=== PATIENT | female | born 1965 | race Caucasian/White ===

== ENCOUNTER 2021-03-25 08:00 | Outpatient (REF) | payer OTHER, SELFPAY ==
[2021-03-25 11:33] LABS: Hematocrit 33.9 % (37-47); Hemoglobin 10.9 g/dl (12.0-16.0); Mean Corpuscular HGB Conc 32.2 g/dl (31.0-35.0); Mean Corpuscular Hemoglobin 28.6 pg (27.0-33.0); Mean Platelet Volume 11.2 fL (9.4-12.3); Platelet Count 227 X10*3/uL (160-400); Red Blood Count 3.81 X10*6/uL (4.20-5.50); Red Cell Distribution Width 13.3 % (11.0-16.0); White Blood Count 4.5 X10*3/uL (4.8-10.8)
[2021-03-25 12:11] LABS: Alanine Aminotransferase 19 U/L (0-31); Alkaline Phosphatase 64 U/L (39-117); Anion Gap 9 (12-20); Aspartate Amino Transferase 28 U/L (5-31); Bilirubin Total 0.4 mg/dL (0.0-1.0); Blood Urea Nitrogen 9 mg/dL (9-16); Calcium 8.9 mg/dL (8.4-10.2); Carbon Dioxide 29 mmol/L (22-29); Chloride 107 mmol/L (96-108); Cholesterol 170 mg/dL; Estimated Glomerular Filt Rate > 60; Glucose Fasting 88 mg/dL (60-99); HDL Cholesterol 57 mg/dL; LDL Cholesterol Calculated 102 mg/dl; Sodium 141 mmol/L (135-145); Total Protein 7.1 g/dL (6.5-8.0); Triglycerides 57 mg/dL
[2021-03-31 05:17] LABS: Vitamin D 25-OH, D2 <4 ng/mL; Vitamin D 25-OH, D3 30 ng/mL; Vitamin D 25-OH, Total 30 ng/mL (30-100)
== END 2021-03-25 08:01 | disposition home or self-care (01) ==
LOC: HO.MANLDS 08:00
PROVIDERS: PCP Internal Medicine; Visit Provider Internal Medicine
DX: R09.89 Other specified symptoms and signs involving the circulatory and respiratory systems (principal)
CPT/HCPCS: 36415; 80053; 80061; 82306; 85027

== ENCOUNTER 2022-05-20 08:11 | Outpatient (REF) | payer OTHER, SELFPAY ==
[2022-05-20 11:09] LABS: MANUAL DIFF FLAG NO
[2022-05-20 11:14] LABS: Basophils Absolute Auto 0.1 X10*3/uL (0.0-0.2); Basophils Percent Auto 1.1 % (0-2); Eosinophils Absolute Auto 0.1 X10*3/uL (0.0-0.4); Eosinophils Percent Auto 2.9 % (0-4); Hemoglobin 11.1 g/dl (12.0-16.0); Imm Gran Abs Auto 0.01 X10*3/uL (0.00-0.03); Imm Gran Pct Auto 0.2 % (0.0-0.4); Lymphocytes Absolute Auto 1.6 X10*3/uL (1.2-4.9); Lymphocytes Percent Auto 32.8 % (20-40); Mean Corpuscular HGB Conc 32.6 g/dl (31.0-35.0); Mean Corpuscular Hemoglobin 28.6 pg (27.0-33.0); Mean Corpuscular Volume 87.6 fL (80.0-98.0); Mean Platelet Volume 10.9 fL (9.4-12.3); Monocytes Absolute Auto 0.6 X10*3/uL (0.1-1.2); Neutrophils Absolute Auto 2.4 x10*3/uL (2.0-8.3); Platelet Count 225 X10*3/uL (160-400); Red Blood Count 3.88 X10*6/uL (4.20-5.50); Red Cell Distribution Width 13.6 % (11.0-16.0); White Blood Count 4.8 X10*3/uL (4.8-10.8)
[2022-05-20 11:32] LABS: Alanine Aminotransferase 12 U/L (0-31); Albumin Level 4.1 g/dL (3.5-5.0); Alkaline Phosphatase 64 U/L (39-117); Anion Gap 12 (12-20); Aspartate Amino Transferase 25 U/L (5-31); Bilirubin Total 0.5 mg/dL (0.0-1.0); Blood Urea Nitrogen 9 mg/dL (9-16); Calcium 9.2 mg/dL (8.4-10.2); Carbon Dioxide 30 mmol/L (22-29); Chloride 105 mmol/L (96-108); Cholesterol 168 mg/dL; Estimated Glomerular Filt Rate > 60; Glucose Random 95 mg/dL (60-115); HDL Cholesterol 63 mg/dL; LDL Cholesterol Calculated 95 mg/dl; Potassium 4.5 mmol/L (3.3-5.1); Sodium 142 mmol/L (135-145); Total Protein 7.3 g/dL (6.5-8.0); Triglycerides 53 mg/dL
[2022-05-20 12:06] LABS: Vitamin B12 217 pg/mL (200-900)
== END 2022-05-20 08:12 | disposition home or self-care (01) ==
LOC: HO.MANLDS 08:11
PROVIDERS: Visit Provider Internal Medicine
DX: Z00.00 Encounter for general adult medical examination without abnormal findings (principal)
CPT/HCPCS: 36415; 80053; 80061; 82306; 82607; 84443; 85025

== ENCOUNTER 2023-06-04 09:41 | Outpatient (REF) | payer OTHER, SELFPAY ==
[2023-06-04 13:21] LABS: MANUAL DIFF FLAG NO
[2023-06-04 13:49] LABS: Basophils Absolute Auto 0.1 X10*3/uL (0.0-0.2); Basophils Percent Auto 1.1 % (0-2); Eosinophils Absolute Auto 0.2 X10*3/uL (0.0-0.4); Eosinophils Percent Auto 3.1 % (0-4); Hemoglobin 11.5 g/dl (12.0-16.0); Imm Gran Abs Auto 0.01 X10*3/uL (0.00-0.03); Imm Gran Pct Auto 0.2 % (0.0-0.4); Lymphocytes Absolute Auto 2.2 X10*3/uL (1.2-4.9); Lymphocytes Percent Auto 39.9 % (20-40); Mean Corpuscular HGB Conc 31.9 g/dl (31.0-35.0); Mean Corpuscular Hemoglobin 28.4 pg (27.0-33.0); Mean Corpuscular Volume 88.9 fL (80.0-98.0); Mean Platelet Volume 10.7 fL (9.4-12.3); Monocytes Absolute Auto 0.6 X10*3/uL (0.1-1.2); Monocytes Percent Auto 11.7 % (2-11); Neutrophils Absolute Auto 2.4 x10*3/uL (2.0-8.3); Platelet Count 259 X10*3/uL (160-400); Red Blood Count 4.05 X10*6/uL (4.20-5.50); Red Cell Distribution Width 13.3 % (11.0-16.0); White Blood Count 5.5 X10*3/uL (4.8-10.8)
[2023-06-04 14:05] LABS: Alanine Aminotransferase 22 U/L (0-31); Albumin Level 4.1 g/dL (3.5-5.0); Alkaline Phosphatase 66 U/L (39-117); Anion Gap 13 (12-20); Aspartate Amino Transferase 32 U/L (5-31); Bilirubin Total 0.5 mg/dL (0.0-1.0); Blood Urea Nitrogen 8 mg/dL (9-16); Calcium 9.4 mg/dL (8.4-10.2); Carbon Dioxide 27 mmol/L (22-29); Chloride 103 mmol/L (96-108); Cholesterol 173 mg/dL (<200); Estimated Glomerular Filt Rate > 60; Glucose Random 89 mg/dL (60-115); HDL Cholesterol 67 mg/dL (>40); LDL Cholesterol Calculated 95 mg/dL (<100); Sodium 139 mmol/L (135-145); Total Protein 7.8 g/dL (6.5-8.0); Triglycerides 59 mg/dL (<150)
== END 2023-06-04 09:42 | disposition home or self-care (01) ==
LOC: HO.MANLDS 09:41
PROVIDERS: Visit Provider Internal Medicine
DX: Z00.00 Encounter for general adult medical examination without abnormal findings (principal); Z13.6 Encounter for screening for cardiovascular disorders
CPT/HCPCS: 36415; 80053; 80061; 85025

== ENCOUNTER 2024-06-06 10:09 | Outpatient (REF) | payer OTHER, SELFPAY ==
[2024-06-06 13:11] LABS: MANUAL DIFF FLAG NO
[2024-06-06 13:33] LABS: Basophils Percent Auto 0.8 % (0-2); Eosinophils Absolute Auto 0.1 X10*3/uL (0.0-0.4); Eosinophils Percent Auto 2.7 % (0-4); Hematocrit 34.4 % (37.0-47.0); Hemoglobin 11.4 g/dl (12.0-16.0); Imm Gran Abs Auto 0.02 X10*3/uL (0.00-0.03); Imm Gran Pct Auto 0.4 % (0.0-0.4); Lymphocytes Absolute Auto 1.8 X10*3/uL (1.2-4.9); Lymphocytes Percent Auto 36.5 % (20-40); Mean Corpuscular HGB Conc 33.1 g/dl (31.0-35.0); Mean Corpuscular Hemoglobin 29.9 pg (27.0-33.0); Mean Corpuscular Volume 90.3 fL (80.0-98.0); Mean Platelet Volume 10.7 fL (9.4-12.3); Monocytes Absolute Auto 0.6 X10*3/uL (0.1-1.2); Monocytes Percent Auto 11.8 % (2-11); Neutrophils Absolute Auto 2.3 x10*3/uL (2.0-8.3); Neutrophils Percent Auto 47.8 % (45-73); Platelet Count 230 X10*3/uL (160-400); Red Blood Count 3.81 X10*6/uL (4.20-5.50); White Blood Count 4.8 X10*3/uL (4.8-10.8)
[2024-06-06 13:45] LABS: Alanine Aminotransferase 27 U/L (0-31); Alkaline Phosphatase 61 U/L (39-117); Anion Gap 12 (12-20); Aspartate Amino Transferase 39 U/L (5-31); Bilirubin Total 0.5 mg/dL (0.0-1.0); Blood Urea Nitrogen 9 mg/dL (9-16); Calcium 9.4 mg/dL (8.4-10.2); Carbon Dioxide 30 mmol/L (22-29); Chloride 105 mmol/L (96-108); Cholesterol 172 mg/dL (<200); Estimated Glomerular Filt Rate > 60; Glucose Random 85 mg/dL (60-115); HDL Cholesterol 64 mg/dL (>40); LDL Cholesterol Calculated 100 mg/dL (<100); Sodium 143 mmol/L (135-145); Total Protein 7.3 g/dL (6.5-8.0); Triglycerides 42 mg/dL (<150)
[2024-06-06 14:14] LABS: Thyroid Stimulating Hormone 1.64 uIU/mL (0.32-4.0); Vitamin D 25-OH Total 47.3 ng/mL (>30)
== END 2024-06-06 10:10 | disposition home or self-care (01) ==
LOC: HO.MANLDS 10:09
PROVIDERS: Visit Provider Internal Medicine
DX: Z00.00 Encounter for general adult medical examination without abnormal findings (principal)
CPT/HCPCS: 36415; 80053; 80061; 82306; 84443; 85025

== ENCOUNTER 2025-06-12 10:06 | Outpatient (REF) | payer OTHER, SELFPAY ==
--- OUTSIDE RECORDS SUMMARY | 2025-06-12 12:11 | XMS_ITS | Encounter Summary ---
Author Organization [facility] Address [address] [facility] [address] [place] [address] Phone Care Team Providers Care Air Conditioning Mechanic Name Role Phone Kermit Dash Primary Care Provider [phone] Encounter Details Date Type Department Care Team (Late st Contact Info) Description 12/25/2022 Procedure Pass [facility], Ct Scan - [address] [address] Social History Tobacco Use Types Packs/Day Years Used Date Smoking Tobacco: Never Smokeless Tobacco: Never Alcohol Use Standard Drinks/Week Comments Never 0 (1 standard drink = 0.6 oz pur e alcohol) Education Answer Date Recorded Are you interested in more education? Not on william e 12/11/2022 Are you concerned about learning? Not on file 12/11/2022 No 12/11/2022 No 12/11/2022 Comments No Sex and Gender Information Value Date Recorded Sex Assigned at Not on file Legal Sex Female 9:43 PM EDT Gender Identity Not on file Sexual Orientation Not on file documented as of this encounter Plan of Treatment Upcoming Encounters Date Type Department Care Team (Late st Contact Info) Description 03/13/2025 Procedure Pass [facility], Mammography- [facility] [address] [place] [address] 12/28/2025 12:45 PM EDT Appointment [facility] [address] 3rd [place] [address] Vijay Mitchell MD [address] [facility], [address] [place] [address] 12/28/2025 1:30 PM EDT Appointment [facility] [place] [address] 3rd [place] [address] Vijay Mitchell MD [address] [facility], [address] [place] [address] 02/08/2026 10:00 AM EDT Office Visit [facility] [address] Floor, [address] [place] [address] Vijay Mitchell MD [address] [place] [address], [address] [address] 03/12/2026 7:30 AM EDT Appointment [address] [address] Souleymane Quick DO 170 [facility], 2nd [place] [address] documented as of this encounter Visit Diagnoses Not on filedocumented in this encounter Care Teams Air Conditioning Mechanic Relationship Specialty Start Date End Date Indioclyde Kermit DO Tatianna PCP - General 06/01/17 documented as of this encounter Additional Source Comments The information contained in this document represents components of the legal health record. It is not the complete legal health record.[facility]
--- OUTSIDE RECORDS SUMMARY | 2025-06-12 12:11 | XMS_ITS | Encounter Summary ---
Author Organization [facility] Address [address] [facility] [address] [place] [address] Phone Care Team Providers Care Hvac Installer Name Role Phone Indioclyde Kermit Tatianna ROJAS Primary Care Provider [phone] Encounter Details Date Type Department Care Team (Late st Contact Info) Description 02/26/2021 Procedure Pass [address] [address] Social History Tobacco Use Types Packs/Day Years Used Date Smoking Tobacco: Never Smokeless Tobacco: Never Alcohol Use Standard Drinks/Week Comments Never 0 (1 standard drink = 0.6 oz pur e alcohol) Comments No Sex and Gender Information Value Date Recorded Sex Assigned at Not on file Legal Sex Female 9:43 PM EDT Gender Identity Not on file Sexual Orientation Not on file documented as of this encounter Plan of Treatment Upcoming Encounters Date Type Department Care Team (Late st Contact Info) Description 03/13/2025 Procedure Pass [address] [address] 12/28/2025 12:45 PM EDT Appointment [facility] [address] [place] [address] Vijay Mitchell MD 22 [facility] 301 [place] [address] 12/28/2025 1:30 PM EDT Appointment [facility] [address] [place] [address] Vijay Mitchell MD [address] [facility], [address] [place] [address] 02/08/2026 10:00 AM EDT Office Visit [facility] [address] [place] [address] 3rd Floor, [address] [place] [address] Vijay Mitchell MD [address] [facility], [address] [place] [address] 03/12/2026 7:30 AM EDT Appointment [address] [address] Souleymane Quick DO [address] [place] [address], 2nd [place] [address] documented as of this encounter Visit Diagnoses Not on filedocumented in this encounter Care Teams Hvac Installer Relationship Specialty Start Date End Date Kermit Dash DO PCP - General 06/01/17 documented as of this encounter Additional Source Comments The information contained in this document represents components of the legal health record. It is not the complete legal health record.[facility]
--- OUTSIDE RECORDS SUMMARY | 2025-06-12 12:12 | XMS_ITS | Encounter Summary ---
Author Organization [facility] Address [address] [facility] [address] [place] [address] Phone Care Team Providers Care Special Effects Artist Name Role Phone Indioclyde Kermit Tatianna ROJAS Primary Care Provider [phone] Encounter Details Date Type Department Care Team (Late st Contact Info) Description 03/08/[address] [address] Social History Tobacco Use Types Packs/Day Years Used Date Smoking Tobacco: Never Smokeless Tobacco: Never Alcohol Use Standard Drinks/Week Comments Never 0 (1 standard drink = 0.6 oz pur e alcohol) Education Answer Date Recorded Are you interested in more education? Not on william e 12/11/2022 Are you concerned about learning? Not on file 12/11/2022 No 12/11/2022 No 12/11/2022 Digital Access Answer Date Recorded No 01/11/2023 No 01/11/2023 Reliable internet access at home? Not on file 01/11/2023 Device with a working camera? Not on file Comments No Sex and Gender Information Value Date Recorded Sex Assigned at Not on file Legal Sex Female 9:43 PM EDT Gender Identity Not on file Sexual Orientation Not on file documented as of this encounter Plan of Treatment Upcoming Encounters Date Type Department Care Team (Late st Contact Info) Description 03/13/[address] [address] 12/28/2025 12:45 PM EDT Appointment [facility] [place] [address]rd [place] [address] Vijay Mitchell MD [address] [place] [address], [address] [address] 12/28/2025 1:30 PM EDT Appointment [facility] [address] [place] [address] Vijay Mitchell MD [address] [place] [address], [address] [address] 02/08/2026 10:00 AM EDT Office Visit [facility] [address], [address] [address] Vijay Mitchell MD [address] [place] [address] 03/12/2026 7:30 AM EDT Appointment [address] [address] Souleymane Quick DO [address] [place] [address], [address] [place] [address] documented as of this encounter Visit Diagnoses Not on filedocumented in this encounter Care Teams Special Effects Artist Relationship Specialty Start Date End Date Kermit Dash DO PCP - General 06/01/17 documented as of this encounter Additional Source Comments The information contained in this document represents components of the legal health record. It is not the complete legal health record.[facility]
--- OUTSIDE RECORDS SUMMARY | 2025-06-12 12:12 | XMS_ITS | Encounter Summary ---
Author Organization [facility] Address [address] [facility] [facility] [address] [place] [address] Phone Care Team Providers Care Hospital Housekeeper Name Role Phone Kermit Dash DO Primary Care Provider [phone] Encounter Details Date Type Department Care Team (Late st Contact Info) Description 03/04/2022 Transcribe Orders Virtual Department 30 [place] [address] Kermit Dash DO [address] [facility] [place] [address] [place] [address] [email or web address] Encounter for screening mammogram for malignant neoplasm of breast (Primary Dx) Social History Tobacco Use Types Packs/Day Years [...] st Contact Info) Description 03/13/2025 Procedure Pass [facility], [facility]- [facility] 30 [place] [address] 12/28/2025 12:45 PM EDT Appointment [facility] [address] 3rd [place] [address] Vijay Mitchell MD [address] [facility], [address] [place], [place] [id number] 12/28/2025 1:30 PM EDT Appointment [facility] [place] [address]rd [place] [address] Vijay Mitchell MD [address] [place] [address], [address] [place] [address] 02/08/2026 10:00 AM EDT Office Visit [facility] [address] Floor, [address] [place] [address] Vijay Mitchell MD [address] [place] [address], [address] [place], [place] [id number] 03/12/2026 7:30 AM EDT Appointment [facility], [facility]- [address] [address] Souleymane Quick, DO [address] [facility] [place] [place], 2nd [place] [address] documented as of this encounter Results * BI MAMMOGRAM SCREENING WITH TOMOSYNTHESIS WITH CAD (BILATERAL) (03/05/2023 7:37 AM EDT) Anatomical Region Laterality Modality Breast Left, Breast Right, Breast Bilateral Bila teral Mammography 03/10/2023 5:23 PM EDT Impressions 03/11/2023 8:59 AM EDT No mammographic signs of malignancy. Annual screening is recommended. BI-RADS CATEGORY: 1 - Negative. DENSITY: The breast tissue is heterogeneously dense, which could obscure a lesion on mammography. Narrative 03/11/2023 8:59 AM EDT Bilateral mammography is performed in conjunction with computed aided detection. 3-D tomography along with 2-D C view imaging was also performed. Comparison made to previous dated as far back as 04/05/2009 and as recent as 03/03/2022. No suspicious masses, areas of architectural distortion or suspicious microcalcifications. Procedure Note Seven Gabriel MD - 03/11/2023 Bilateral mammography is performed in conjunction with computed aideddetection. 3-D tomography along with 2-D C view imaging was alsoperformed. Comparison made to previous dated as far back as 04/05/2009 andas recent as 03/03/2022. No suspicious masses, areas of architectural distortion or suspiciousmicrocalcifications. IMPRESSION: No mammographic signs of malignancy. Annual screening is recommended. BI-RADS CATEGORY: 1 - Negative. DENSITY: The breast tissue is heterogeneously dense, which could obscurea lesion on mammography. us Provider Not In System PhD IMG MG EXAMS Final Result documented in this encounter Visit Diagnoses Diagnosis Encounter for screening mammogram for malignant neoplasm of breast- Primary Encounter for screening mammogram for malignant neoplasm of breast documented in this encounter Care Teams Hospital Housekeeper Relationship Specialty Start Date End Date Kermit Dash DO [email or web address] PCP - General 06/01/17 documented as of this encounter Additional Source Comments The information contained in this document represents components of the legal health record. It is not the complete legal health record.[facility]
--- OUTSIDE RECORDS SUMMARY | 2025-06-12 12:12 | XMS_ITS | Encounter Summary ---
Author Organization [facility] Address [address] [facility] [address] [place] [address] Phone Care Team Providers Care Emergency Response Coordinator Name Role Phone Kermit Dash DO Primary Care Provider [phone] Encounter Details Date Type Department Care Team (Late Contact Info) Description 03/08/2024 Transcribe Orders Virtual Department 30 [place] [address] Kermit Dash DO 179 [facility] [place] [address] [email or web address] Breast screening (Primary Dx) Social History Tobacco Use Types [...] Encounters Date Type Department Care Team (Late Contact Info) Description 03/13/2025 Procedure Pass [facility] [address] 12/28/2025 12:45 PM EDT Appointment [facility] [address] [place] [address] Vijay Mitchell MD [address] [place] [address] 12/28/2025 1:30 PM EDT Appointment [facility] [address] [place] [address] Vijay Mitchell MD [address] [place] [address], [address] [address] 02/08/2026 10:00 AM EDT Office Visit [facility] [address] [place] [address], [address] [address] Vijay Mitchell MD [address] [place] [address] 03/12/2026 7:30 AM EDT Appointment [address] [address] Souleymane Quick, DO 170 [facility], 2nd [place] [address] documented as of this encounter Results * BI MAMMOGRAM SCREENING WITH TOMOSYNTHESIS WITH CAD (BILATERAL) (03/09/2025 7:53 AM EDT) Anatomical Region Laterality Modality Breast Left, Breast Right, Breast Bilateral Bila teral Mammography 03/09/2025 9:20 AM EDT Impressions 03/09/2025 9:23 AM EDT No mammographic evidence of malignancy in either breast. Annual screening mammography is recommended. BI-RADS 1 NEGATIVE The patient will be notified of the results and recommendations. Narrative 03/09/2025 9:23 AM EDT BI MAMMOGRAM SCREENING WITH TOMOSYNTHESIS WITH CAD (BILATERAL) Additional patient information: Screening. COMPARISON: Comparison is made with relevant prior imaging. Breast composition: The breasts are heterogeneously dense, which may obscure small masses. FINDINGS: No abnormal masses, suspicious calcifications, or other significant findings are identified mammographically in either breast. There has been no significant interval change. us Provider Not In System PhD IMG MG EXAMS Final Result documented in this encounter Visit Diagnoses Diagnosis Breast screening- Primary Breast screening, unspecified Breast screening Breast screening, unspecified documented in this encounter Care Teams Emergency Response Coordinator Relationship Specialty Start Date End Date Kermit Dash DO [email or web address] PCP - General 06/01/17 documented as of this encounter Additional Source Comments The information contained in this document represents components of the legal health record. It is not the complete legal health record.[facility]
--- OUTSIDE RECORDS SUMMARY | 2025-06-12 12:12 | XMS_ITS | Encounter Summary ---
Author Organization [facility] Address [address] [facility] [address] [place] [address] Phone Care Team Providers Care Bitumastic Applier Name Role Phone Kermit Dash DO Primary Care Provider [phone] Encounter Details Date Type Department Care Team (Late Contact Info) Description 02/26/2021 Transcribe Orders Virtual Department 30 [place] [address] Kermit Dash DO 179 [facility] [address] [place] [address] Breast screening (Primary Dx) Social History Tobacco Use Types Packs/Day Years Used Date Smoking Tobacco: Never Assessed Comments No Sex and Gender Information Value Date Recorded Sex Assigned at Not on file Legal Sex Female 9:43 PM EDT Gender Identity Not on file Sexual Orientation Not on file documented as of this encounter Plan of Treatment Upcoming Encounters Date Type Department Care Team (Late Contact Info) Description 03/13/2025 Procedure Pass [facility], Mammography- [facility] 30 [place] [address] 12/28/2025 12:45 PM EDT Appointment [facility] [address] 3rd [place] [address] Vijay Mitchell MD 22 [facility], [address] [place] [address] 12/28/2025 1:30 PM EDT Appointment [facility] [address] [place] [address] Vijay Mitchell MD 22 [facility], [address] [place] [address] [email or web address] 02/08/2026 10:00 AM EDT Office Visit [facility] [address], [address] [place] [address] Vijay Mitchell MD [address] [facility], [address] [place] [address] 03/12/2026 7:30 AM EDT Appointment [facility], [address] [address] Souleymane Quick, [address], 2nd [place] [address] [email or web address] documented as of this encounter Results * BI MAMMOGRAM SCREENING WITH TOMOSYNTHESIS WITH CAD (BILATERAL) (03/03/2022 7:35 AM EDT) Anatomical Region Laterality Modality Breast Left, Breast Right, Breast Bilateral Bila teral Mammography 03/03/2022 8:01 AM EDT Impressions 03/03/2022 8:12 AM EDT No mammographic evidence of malignancy. Recommend routine annual surveillance. BI-RADS CATEGORY: 1 - Negative. DENSITY: The breast tissue is heterogeneously dense, which could obscure a lesion on mammography. Narrative 03/03/2022 8:12 AM EDT 56-year-old female. Comparison made to previous on 02/25/2021 and as far back as 04/05/2009. Interpretation made in conjunction with computer-aided detection and tomosynthesis. The breasts are heterogeneously dense, which may obscure small masses. There are no suspicious masses, areas of architectural distortion, or suspicious clusters of microcalcifications. Procedure Note Morro Harrington MD - 03/03/2022 56-year-old female. Comparison made to previous on 02/25/2021 and as farback as 04/05/2009. Interpretation made in conjunction with computer-aideddetection and tomosynthesis. The breasts are heterogeneously dense, which may obscure small masses. There are no suspicious masses, areas of architectural distortion, orsuspicious clusters of microcalcifications. IMPRESSION: No mammographic evidence of malignancy. Recommend routine annualsurveillance. BI-RADS CATEGORY: 1 - Negative. DENSITY: The breast tissue is heterogeneously dense, which could obscurea lesion on mammography. us Kermit Dash DO IMG MG EXAMS Final Result documented in this encounter Visit Diagnoses Diagnosis Breast screening- Primary Breast screening, unspecified Breast screening Breast screening, unspecified documented in this encounter Care Teams Bitumastic Applier Relationship Specialty Start Date End Date Kermit Dash DO PCP - General 06/01/17 documented as of this encounter Additional Source Comments The information contained in this document represents components of the legal health record. It is not the complete legal health record.[facility]
--- OUTSIDE RECORDS SUMMARY | 2025-06-12 12:12 | XMS_ITS | Encounter Summary ---
Author Organization [facility] Address [address] [facility] [address] [place] [address] Phone Care Team Providers Care Managed Care Provider Name Role Phone Indioclyde Kermit Tatianna ROJAS Primary Care Provider [phone] Encounter Details Date Type Department Care Team (Late st Contact Info) Description 03/20/[address] [address] Social History Tobacco Use Types Packs/Day Years [...] (Late st Contact Info) Description 03/13/[address] [address] 12/28/2025 12:45 PM EDT Appointment [facility] [place] [address] 3rd [place] [address] Vijay Mitchell MD [address] [place] [address], [address] [address] 12/28/2025 1:30 PM EDT Appointment [facility] [address] [place] [address] Vijay Mitchell MD [address] [place] [address], [address] [address] 02/08/2026 10:00 AM EDT Office Visit [facility] [address], [address] [address] Vijay Mitchell MD [address] [place] [address] 03/12/2026 7:30 AM EDT Appointment [address] [address] Souleymane Quick DO [address] [place] [address], 2[address] [place] [address] documented as of this encounter Visit Diagnoses Not on filedocumented in this encounter Care Teams Managed Care Provider Relationship Specialty Start Date End Date Kermit Dash DO PCP - General 06/01/17 documented as of this encounter Additional Source Comments The information contained in this document represents components of the legal health record. It is not the complete legal health record.[facility]
--- OUTSIDE RECORDS SUMMARY | 2025-06-12 12:14 | XMS_ITS | Encounter Summary ---
Author Organization [facility] Address [address] [facility] [address] [place] [address] Phone Care Team Providers Care Hole Filler Name Role Phone IndioKermit tang Primary Care Provider [phone] Encounter Details Date Type Department Care Team (Late st Contact Info) Description 01/26/[address] [address] Social History Tobacco Use Types Packs/Day Years [...] (Late st Contact Info) Description 03/13/[address] [address] 12/28/2025 12:45 PM EDT Appointment [facility] [place] [place] [address] Vijay Mitchell MD [address] [place] [address] 12/28/2025 1:30 PM EDT Appointment [facility] [address] [place] [address] Vijay Mitchell MD [address] [place] [address] 02/08/2026 10:00 AM EDT Office Visit [facility] [address] [facility] 3rd Floor, [address] [place] [address] Vijay Mitchell MD 22 [facility], [address] [place] [address] 03/12/2026 7:30 AM EDT Appointment [facility] 30 [place] [address] Souleymane Quick DO 170 [facility], 2nd [place] [address] documented as of this encounter Visit Diagnoses Not on filedocumented in this encounter Care Teams Hole Filler Relationship Specialty Start Date End Date Kermit Dash DO PCP - General 06/01/17 documented as of this encounter Additional Source Comments The information contained in this document represents components of the legal health record. It is not the complete legal health record.[facility]
--- OUTSIDE RECORDS SUMMARY | 2025-06-12 12:14 | XMS_ITS | Encounter Summary ---
Author Organization [facility] Address [address] [place] [address] Phone Care Team Providers Care Foundry Process Engineer Name Role Phone Kermit Dash DO Primary Care Provider [phone] Encounter Details Date Type Department Care Team (Late st Contact Info) Description 06/05/2017 Ancillary Orders [facility] X-Ray [address] [address] Kermit Dash DO [address] [facility] [place] [address] [place] [address] Visit for screening mammogram Social History Tobacco Use Types Packs/Day Years Used Date Smoking Tobacco: Never Assessed Comments Unknown Sex and Gender Information Value Date Recorded Sex Assigned at Not on file Legal Sex Female 9:43 PM EDT Gender Identity Not on file Sexual Orientation Not on file documented as of this encounter Plan of Treatment Upcoming Encounters Date Type Department Care Team (Late st Contact Info) Description 03/13/2025 Procedure Pass [facility] Mammography- [address] [address] 12/28/2025 12:45 PM EDT Appointment [facility] [address] 3rd [place] [address] Vijay Mitchell MD [address] [facility], [address] [place] [address] 12/28/2025 1:30 PM EDT Appointment [facility] [place] [address] 3rd [place] [address] Vijay Mitchell MD [address] [place] [address], [address] [place] [address] 02/08/2026 10:00 AM EDT Office Visit [facility] [address] Floor, [address] [place] [address] Vijay Mitchell MD [address] [facility], [address] [place] [address] 03/12/2026 7:30 AM EDT Appointment [facility], [address] [address] Souleymane Quick, [address], 2nd [place] [address] [email or web address] documented as of this encounter Results * BI MAMMOGRAM SCREENING WITH TOMOSYNTHESIS WITH CAD (BILATERAL) (02/18/2018 7:41 AM EDT) Anatomical Region Laterality Modality Breast Left, Breast Right, Breast Bilateral Bila teral Mammography 02/18/2018 8:49 AM EDT Impressions 02/18/2018 8:53 AM EDT BILATERAL BREASTS: Negative, no evidence of malignancy. Normal interval follow- up is recommended in 12 months. BI-RADS CATEGORY: 1 - Negative. DENSITY: The breast tissue is heterogeneously dense, an appearance which lowers the sensitivity of mammography. POS - [id number] Narrative 02/18/2018 8:53 AM EDT STUDY: Bilateral screening mammography with tomosynthesis and CAD TECHNIQUE: Bilateral full-field digital screening mammography is obtained and read in conjunction with computer-aided detection. Tomosynthesis as well as 2-D C view imaging were obtained. COMPARISON: Comparison made to multiple prior, most recent February 17, 2017, and most remote April 08, 2011. BREAST COMPOSITION: The breasts are heterogeneously dense, which may obscure small masses. BILATERAL BREASTS: No significant masses, calcifications or other abnormalities are seen. Procedure Note Jannet Barrientos MD - 02/18/2018 STUDY: Bilateral screening mammography with tomosynthesis and CAD TECHNIQUE: Bilateral full-field digital screening mammography is obtainedand read in conjunction with computer-aided detection. Tomosynthesis aswell as 2-D C view imaging were obtained. COMPARISON: Comparison made to multiple prior, most recent February 17, 2017,and most remote April 08, 2011. BREAST COMPOSITION: The breasts are heterogeneously dense, which mayobscure small masses. BILATERAL BREASTS: No significant masses, calcifications or otherabnormalities are seen. IMPRESSION: BILATERAL BREASTS: Negative, no evidence of malignancy. Normal intervalfollow-up is recommended in 12 months. BI-RADS CATEGORY: 1 - Negative. DENSITY: The breast tissue is heterogeneously dense, an appearance whichlowers the sensitivity of mammography. POS - [id number] Kermit Dash DO IMG MG EXAMS Final Result documented in this encounter Visit Diagnoses Diagnosis Visit for screening mammogram Visit for screening mammogram documented in this encounter Care Teams Foundry Process Engineer Relationship Specialty Start Date End Date Kermit Dash DO PCP - General 06/01/17 documented as of this encounter Additional Source Comments The information contained in this document represents components of the legal health record. It is not the complete legal health record.[facility]
--- OUTSIDE RECORDS SUMMARY | 2025-06-12 12:14 | XMS_ITS | Encounter Summary ---
Author Organization [facility] Address [address] [facility] [address] [place] [address] Phone Care Team Providers Care Sexologist Name Role Phone Kermit Dash DO Primary Care Provider [phone] Encounter Details Date Type Department Care Team (Late Contact Info) Description 02/21/2019 Ancillary Orders Virtual Department [address] [place] [address] Kermit Dash DO [address] [facility] [place] [address] [place] [address] [email or web address] Breast screening Social History Tobacco Use Types Packs/Day Years [...] (Late Contact Info) Description 03/13/2025 Procedure Pass [facility], Mammography- [facility] [address] [place] [address] 12/28/2025 12:45 PM EDT Appointment [facility] [address] [place] [address] Vijay Mitchell MD [address] [facility], [address] [place] [address] 12/28/2025 1:30 PM EDT Appointment [facility] [address]rd [facility] [place] [address] Vijay Mitchell MD [address] [facility], [address] [place] [address] 02/08/2026 10:00 AM EDT Office Visit [facility] [address], [address] [place] [address] Vijay Mitchell MD [address] [facility], [address] [place] [address] 03/12/2026 7:30 AM EDT Appointment [facility], [address] [address] Souleymane Quick, [address] [facility], 2nd [place] [address] [email or web address] documented as of this encounter Results * BI MAMMOGRAM SCREENING WITH TOMOSYNTHESIS WITH CAD (BILATERAL) (02/22/2020 7:29 AM EDT) Anatomical Region Laterality Modality Breast Left, Breast Right, Breast Bilateral Bila teral Mammography 02/22/2020 10:0 5 AM EDT Impressions 02/22/2020 10:07 AM EDT No mammographic signs of malignancy. Annual screening is recommended. BI-RADS CATEGORY: 1 - Negative. DENSITY: The breast tissue is heterogeneously dense, an appearance which lowers the sensitivity of mammography. POS - [id number] Narrative 02/22/2020 10:07 AM EDT Bilateral mammography is performed in conjunction with computed aided detection. 3-D tomography along with 2-D C view imaging was also performed. Comparison made to previous dated as far back as 04/12/2013 and as recent as 02/20/2019. No suspicious masses, areas of architectural distortion or suspicious microcalcifications. Procedure Note Seven Kaplan MD - 02/22/2020 Bilateral mammography is performed in conjunction with computed aideddetection. 3-D tomography along with 2-D C view imaging was alsoperformed. Comparison made to previous dated as far back as 04/12/2013 andas recent as 02/20/2019. No suspicious masses, areas of architectural distortion or suspiciousmicrocalcifications. IMPRESSION: No mammographic signs of malignancy. Annual screening is recommended. BI-RADS CATEGORY: 1 - Negative. DENSITY: The breast tissue is heterogeneously dense, an appearance whichlowers the sensitivity of mammography. POS - [id number] us Kermit Dash DO IMG MG EXAMS Final Result documented in this encounter Visit Diagnoses Diagnosis Breast screening Breast screening, unspecified Breast screening Breast screening, unspecified documented in this encounter Care Teams Sexologist Relationship Specialty Start Date End Date Kermit Dash DO PCP - General 06/01/17 documented as of this encounter Additional Source Comments The information contained in this document represents components of the legal health record. It is not the complete legal health record.[facility]
--- OUTSIDE RECORDS SUMMARY | 2025-06-12 12:14 | XMS_ITS | Encounter Summary ---
Author Organization [facility] Address [address] [place] [address] Phone Care Team Providers Care Military Pay Clerk Name Role Phone Indioclyde Kermit Tatianna ROJAS Primary Care Provider [phone] Encounter Details Date Type Department Care Team (Late st Contact Info) Description 03/05/2022 Procedure Pass [address] [address] Social History Tobacco Use Types Packs/Day Years [...] st Contact Info) Description 03/13/2025 Procedure Pass [address] [address] 12/28/2025 12:45 PM EDT Appointment [facility] [address] [place] [address] [place] [address] Vijay Mitchell MD [address] [facility] [address] [place] [address] 12/28/2025 1:30 PM EDT Appointment [facility] [address] [place] [address] Vijay Mitchell MD [address] [facility], [address] [place] [address] 02/08/2026 10:00 AM EDT Office Visit [facility] [address] [place] [address] 3rd Floor, [address] [place] [address] Vijay Mitchell MD [address] [facility], [address] [place] [address] 03/12/2026 7:30 AM EDT Appointment [address] [address] Souleymane Quick DO [address] [place] [address], 2nd [place] [address] documented as of this encounter Visit Diagnoses Not on filedocumented in this encounter Care Teams Military Pay Clerk Relationship Specialty Start Date End Date Kermit Dash DO PCP - General 06/01/17 documented as of this encounter Additional Source Comments The information contained in this document represents components of the legal health record. It is not the complete legal health record.[facility]
--- OUTSIDE RECORDS SUMMARY | 2025-06-12 12:14 | XMS_ITS | Encounter Summary ---
Author Organization [facility] Address [address] [facility] [address] [place] [address] Phone Care Team Providers Care Automobile Body Customizer Name Role Phone Kermit Dash DO Primary Care Provider [phone] Encounter Details Date Type Department Care Team (Late Contact Info) Description 03/19/2021 Transcribe Orders Virtual Department 30 [place] [address] Kermit Dash DO [address] [facility] [place] [address] [place] [address] Other specified symptoms and signs involving the circulatory and respiratory systems (Primary Dx) Social History Tobacco Use Types [...] (Late Contact Info) Description 03/13/2025 Procedure Pass [facility] 30 [place] [address] 12/28/2025 12:45 PM EDT Appointment [facility] [address] 3rd [place] [address] Vijay Mitchell MD [address] [facility], [address] [place] [address] 12/28/2025 1:30 PM EDT Appointment [facility] [place] [address] 3rd [place] [address] Vijay Mitchell MD [address] [facility], [address] [place] [address] 02/08/2026 10:00 AM EDT Office Visit [facility] [address], [address] [place] [address] Vijay Mitchell MD [address] [facility], [address] [place] [address] 03/12/2026 7:30 AM EDT Appointment [facility] 30 [place] [address] Souleymane Quick, [address] [place] [address], 2nd [place] [address] documented as of this encounter Results * US Carotid Duplex Complete (Bilateral) (03/25/2021 2:01 PM EDT) Anatomical Region Laterality Modality Heart, Thoracic Vasculature, Neck Ultrasound 03/25/2021 2:08 PM EDT Impressions 03/25/2021 2:09 PM EDT 1. Moderate bilateral internal carotid artery stenosis (50-69% stenosis range). 2. Bilateral antegrade vertebral artery flow. Narrative 03/25/2021 2:09 PM EDT COMPARISON: None. CAROTID ULTRASOUND FINDINGS: RIGHT: Peak external carotid artery: 136 cm/sec Peak vertebral: 101 cm/sec and antegrade Carotid artery morphology: No plaque identified. Peak common carotid artery: 145/41 cm/sec Peak internal carotid artery: 149/57 cm/sec Normal peak systolic ratio. LEFT: Peak external carotid artery: 85 cm/sec Peak vertebral: 77 cm/sec and antegrade Carotid artery morphology: No plaque identified. Peak common carotid artery: 141/38 cm/sec Peak internal carotid artery: 150/58 cm/sec Normal peak systolic ratio. Any stenosis measurement is relative to the distal ICA diameters. Procedure Note Morro Harrington MD - 03/25/2021 COMPARISON: None. CAROTID ULTRASOUND FINDINGS: RIGHT: Peak external carotid artery: 136 cm/sec Peak vertebral: 101 cm/sec and antegrade Carotid artery morphology: No plaque identified. Peak common carotid artery: 145/41 cm/sec Peak internal carotid artery: 149/57 cm/sec Normal peak systolic ratio. LEFT: Peak external carotid artery: 85 cm/sec Peak vertebral: 77 cm/sec and antegrade Carotid artery morphology: No plaque identified. Peak common carotid artery: 141/38 cm/sec Peak internal carotid artery: 150/58 cm/sec Normal peak systolic ratio. Any stenosis measurement is relative to the distal ICA diameters. IMPRESSION: 1. Moderate bilateral internal carotid artery stenosis (50-69% stenosisrange). 2. Bilateral antegrade vertebral artery flow. us Kermit Dash DO CV US NEUROVASCULAR Final Result documented in this encounter Visit Diagnoses Diagnosis Other specified symptoms and signs involving the circulatory and respiratory systems- Primary Other specified symptoms and signs involving the circulatory and respiratory systems documented in this encounter Care Teams Automobile Body Customizer Relationship Specialty Start Date End Date Kermit Dash DO [email or web address] PCP - General 06/01/17 documented as of this encounter Additional Source Comments The information contained in this document represents components of the legal health record. It is not the complete legal health record.[facility]
--- OUTSIDE RECORDS SUMMARY | 2025-06-12 12:14 | XMS_ITS | Clinical Summary ---
Author Organization [facility] Address [address] [facility] [address] [place] [address] Phone Care Team Providers Care Email Designer Name Role Phone IndioKermit tang Primary Care Provider [phone] Allergies Active Allergy Reactions Criticality Noted Date Comments Amoxicillin-Pot Clavulanate Rash Low 04/14/20 21 Medications cholecalciferol (VITAMIN D3) 25 MCG (1,000 unit) tablet Take 1,000 Units by mouth daily. Active PREVIDENT 5000 BOOSTER PLUS 1.1 % Pste Place 1 Application onto teeth as needed. 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 No indication for intervention at this time. Monitor with clinical correlation. Assessment & Plan (11/10/2021 4:48 PM EDT): We will evaluate renal artery as well as this commonly affects the carotid and renal arteries. Patient currently has 50 to 79% bilateral ICA stenosis secondary to fibromuscular dysplasia. We will repeat ultrasound studies every 6 months to a year. We will also assess for clinical correlation in terms of deciding on intervention for this. Bilateral carotid artery stenosis 04/14/2021 Assessment & Plan (12/22/2021 4:53 PM EDT): Asymptomatic. 50 to 79% stenosis. Monitor and follow-up with clinical correlation. Encounters Date Type Department Care Team Description 03/13/2025 Transcribe Orders Virtual Department [address] [place] [address] Kermit Dash, DO Breast screening (Primary Dx) from Last 3 Months Family History Medical History Relation Comments Cancer Father Heart valve surgery Father Breast cancer Niece Diabetes Paternal Grandfather Relation Status Comments Father Niece Paternal Grandfather Social History Tobacco Use Types Packs/Day Years Used Date Smoking Tobacco: Never Smokeless Tobacco: Never Tobacco Cessation:Counseling Given: Not Answered Alcohol Use Standard Drinks/Week Comments Never 0 [...] on file Sexual Orientation Not on file Last Filed Vital Signs Vital Sign Reading Time Taken Comments Blood Pressure 132/70 02/09/2025 12:39 PM EDT Pulse 70 02/09/2025 12:39 PM EDT Temperature - - Respiratory Rate - - Oxygen Saturation 98% 02/09/2025 12:39 PM EDT Inhaled Oxygen Concentration - - Weight 51.7 kg (114 lb) 12/31/2023 1:11 PM EDT Height 167.6 cm (5' 5.98 ) 02/09/2025 12:39 PM E DT Body Mass Index 18.41 12/31/2023 1:11 PM EDT Plan of Treatment Upcoming Encounters Date Type Department Care Team (Late st Contact Info) Description 03/13/2025 Procedure Pass [facility], [facility]- [facility] [address] [place] [address] 12/28/2025 12:45 PM EDT Appointment [facility] [place] [address] [place] [address] Vijay Mitchell MD [address] [place] [address], [address] [place] [address] 12/28/2025 1:30 PM EDT Appointment [facility] [place] [address] [address] [place] [address] Vijay Mitchell MD [address] [place] [address], [address] [address] 02/08/2026 10:00 AM EDT Office Visit [facility] [address] [place] [address], [address] [address] Vijay Mitchell MD [address] [place] [address], [address] [address] 03/12/2026 7:30 AM EDT Appointment [address] [address] Souleymane Quick, [address] [facility], [address]nd [place] [address] Health Maintenance Due Date Last Done Comments DEPRESSION SCREENING 1975 HEPATITIS C SCREENING 12/20/1981 HIV ONE-TIME SCREENING (18-65 YEARS) 12/20/1981 LIPID PANEL 12/20/1981 PAP SMEAR 12/20/1984 COLOGUARD 12/20/2008 COLONOSCOPY 12/20/2008 COLORECTAL CANCER SCREENING 12/20/2008 FIT TEST 12/20/2008 FOBT 12/20/2008 SIGMOIDOSCOPY 12/20/2008 VIRTUAL COLONOSCOPY 12/20/2008 PNEUMOCOCCAL VACCINES (50+ years) (1 of 1 - PCV) 12/20/2013 ZOSTER VACCINES (2 of 2) 08/13/2020 06/18/2020, 02/15 INFLUENZA VACCINE (#1) 2025 07/04/2020 COVID-19 VACCINE ( season) 2025 11/21/2020, 10/31/2020 MAMMOGRAM 03/09/2027 03/09/2025, 02/14, 03/05/2023, Additional history exists Adult Td,Tdap Booster 03/10/2029 03/10/2019 RSV VACCINE (1 - 1-dose 75+ series) 12/20/2038 SMOKING STATUS SCREENING (Once After 26 Yrs) Completed 02/09/2025 HEPATITIS A VACCINES Aged Out No long er eligible based on patient's age to complete this topic HIB VACCINES Aged Out No longer eligi ble based on patient's age to complete this topic MENINGOCOCCAL VACCINES (ACWY) Aged Out No longer eligible based on patient's age to complete this topic MENINGOCOCCAL VACCINES (B) Aged Out N o longer eligible based on patient's age to complete this topic Medical Devices Not on file Procedures Procedure Name Priority Date/Time Associated Diagnosis Comments BI MAMMOGRAM SCREENING WITH TOMOSYNTHESIS WITH CAD (BILATERAL) Routine 03/09/2025 7:53 AM EDT Breast screening from Last 3 Months or Most Recently Relevant to Health Maintenance Results * BI MAMMOGRAM SCREENING WITH TOMOSYNTHESIS [...] System PhD IMG MG EXAMS Final Result from Last 3 Months or Most Recently Relevant to Health Maintenance Insurance 66 1/ [place] [employer] [place] [employer] PCP [facility] [employer] 66 1/ [place] [employer] [place] P[place] [employer] 66 1/2 [place] [employer] [place] PCP S[employer] 66 1/2 [place] [employer] [place] PCP [employer] NON [employer] PCP [employer] 66 1/ [place] [employer] [place] PCP [employer] 66 1/ [place] [employer] [place] PCP [employer] 66 1/ [place] [employer] [place] PCP S[facility] 66 1/2 [place] [employer] [place] PCP [employer] Care Teams Email Designer Relationship Specialty Start Date End Date Kermit Dash DO [email or web address] PCP - General 06/01/17 Additional Source Comments The information contained in this document represents components of the legal health record. It is not the complete legal health record.[facility]
--- OUTSIDE RECORDS SUMMARY | 2025-06-12 12:14 | XMS_ITS | Encounter Summary ---
Author Organization [facility] Address [address] [facility] [address] [place] [address] Phone Care Team Providers Care Jira Administrator Name Role Phone Kermit Dash Primary Care Provider [phone] Encounter Details Date Type Department Care Team (Late st Contact Info) Description 12/25/2022 Procedure Pass [facility], Ct Scan - [address] [address] Social History Tobacco Use Types Packs/Day Years [...] st Contact Info) Description 03/13/2025 Procedure Pass [facility], Mammography- [facility] 30 [place] [address] 12/28/2025 12:45 PM EDT Appointment [facility] [address] 3rd [place] [address] Vijay Mitchell MD 22 [facility], [address] [place] [address] 12/28/2025 1:30 PM EDT Appointment [facility] [place] [address] 3rd [place] [address] Vijay Micthell MD 22 [facility], [address] [place] [address] 02/08/2026 10:00 AM EDT Office Visit [facility] [address] 3rd Floor, [address] [place] [address] Vijay Mitchell MD [address] [place] [address], [address] [address] 03/12/2026 7:30 AM EDT Appointment [address] [address] Souleymane Quick DO [address] [facility], 2nd [place] [address] documented as of this encounter Visit Diagnoses Not on filedocumented in this encounter Care Teams Jira Administrator Relationship Specialty Start Date End Date Indioclyde Kermit DO Tatianna PCP - General 06/01/17 documented as of this encounter Additional Source Comments The information contained in this document represents components of the legal health record. It is not the complete legal health record.[facility]
--- OUTSIDE RECORDS SUMMARY | 2025-06-12 12:14 | XMS_ITS | Encounter Summary ---
Author Organization [facility] Address [address] [facility] [place] [address] Phone Care Team Providers Care Veneer Glue Jointer Feedback Name Role Phone Kermit Dash DO Primary Care Provider [phone] Encounter Details Date Type Department Care Team (Late Contact Info) Description 02/18/2018 Ancillary Orders Virtual Department [address] [place] [address] Kermit Dash DO [address] [facility] [place] [address] [place] [address] [email or web address] Breast screening Social History Tobacco Use Types [...] (Late Contact Info) Description 03/13/2025 Procedure Pass [facility], Mammography- [facility] [address] [place] [address] 12/28/2025 12:45 PM EDT Appointment [facility] [address] [place] [id number] Vijay Mitchell MD [address] [facility], [address] [place] [address] 12/28/2025 1:30 PM EDT Appointment [facility] [address]rd [facility] [place] [address] Vijay Mitchell MD [address] [facility], [address] [place] [address] [email or web address] 02/08/2026 10:00 AM EDT Office Visit [facility] [address], [address] [place] [address] Vijay Mitchell MD [address] [facility], [address] [place] [address] 03/12/2026 7:30 AM EDT Appointment [facility], [address] [address] Souleymane Quick, [address] [facility], 2nd [place] [address] [email or web address] documented as of this encounter Results * BI MAMMOGRAM SCREENING WITH TOMOSYNTHESIS WITH CAD (BILATERAL) (02/20/2019 7:46 AM EDT) Anatomical Region Laterality Modality Breast Left, Breast Right, Breast Bilateral Bila teral Mammography 02/20/2019 9:23 AM EDT Impressions 02/20/2019 9:27 AM EDT No mammographic signs of malignancy. Annual screening is recommended. BI-RADS CATEGORY: 1 - Negative. DENSITY: The breast tissue is heterogeneously dense, an appearance which lowers the sensitivity of mammography. POS - CDHMAM2 Narrative 02/20/2019 9:27 AM EDT Bilateral mammography is performed in conjunction with computed aided detection. 3-D tomography along with 2-D C view imaging was also performed. Comparison made to previous dated as far back as 04/11/2012 and as recent as 02/18/2018. No suspicious masses, areas of architectural distortion or suspicious microcalcifications. Procedure Note Seven Kaplan MD - 02/20/2019 Bilateral mammography is performed in conjunction with computed aideddetection. 3-D tomography along with 2-D C view imaging was alsoperformed. Comparison made to previous dated as far back as 04/11/2012 andas recent as 02/18/2018. No suspicious masses, areas of architectural distortion or suspiciousmicrocalcifications. IMPRESSION: No mammographic signs of malignancy. Annual screening is recommended. BI-RADS CATEGORY: 1 - Negative. DENSITY: The breast tissue is heterogeneously dense, an appearance whichlowers the sensitivity of mammography. POS - CDHMAM2 us Kermit Dash DO IMG MG EXAMS Final Result documented in this encounter Visit Diagnoses Diagnosis Breast screening Breast screening, unspecified Breast screening Breast screening, unspecified documented in this encounter Care Teams Veneer Glue Jointer Feedback Relationship Specialty Start Date End Date Kermit Dash DO PCP - General 06/01/17 documented as of this encounter Additional Source Comments The information contained in this document represents components of the legal health record. It is not the complete legal health record.[facility]
--- OUTSIDE RECORDS SUMMARY | 2025-06-12 12:14 | XMS_ITS | Encounter Summary ---
Author Organization [facility] Address [address] [facility] [address] [place] [address] Phone Care Team Providers Care Grief Counsellor Name Role Phone Kermit Dash DO Primary Care Provider [phone] Encounter Details Date Type Department Care Team (Late Contact Info) Description 02/23/2020 Ancillary Orders Virtual Department [address] [place] [address] Kermit Dash DO [address] [facility] [place] [address] [place] [address] [email or web address] Breast screening Social History Tobacco Use Types [...] (Late Contact Info) Description 03/13/2025 Procedure Pass [facility], Mammography- [facility] [address] [place] [address] 12/28/2025 12:45 PM EDT Appointment [facility] [address] [place] [address] Vijay Mitchell MD [address] [facility], [address] [place] [address] 12/28/2025 1:30 PM EDT Appointment [facility] [address] [place] [address] Vijay Mitchell MD [address] [facility], [address] [place] [address] [email or web address] 02/08/2026 10:00 AM EDT Office Visit [facility] [address], [address] [place] [address] Vijay Mitchell MD [address] [facility], [address] [place] [address] 03/12/2026 7:30 AM EDT Appointment [facility], [address] [address] Souleymane Quick, [address] [place] [address], [address] [place] [address] [email or web address] documented as of this encounter Results * BI MAMMOGRAM SCREENING WITH TOMOSYNTHESIS WITH CAD (BILATERAL) (02/25/2021 7:39 AM EDT) Anatomical Region Laterality Modality Breast Left, Breast Right, Breast Bilateral Bila teral Mammography 02/25/2021 7:45 AM EDT Impressions 02/25/2021 7:57 AM EDT No mammographic evidence of malignancy. Recommend routine annual surveillance. BI-RADS CATEGORY: 1 - Negative. DENSITY: The breast tissue is heterogeneously dense, which could obscure a lesion on mammography. Narrative 02/25/2021 7:57 AM EDT 55-year-old female with no current breast symptoms. Comparison made to previous on 02/22/2020 and as far back as 04/13/2014. Interpretation made in conjunction with computer-aided detection and tomosynthesis. The breasts are heterogeneously dense, which may obscure small masses. There are no suspicious masses, areas of architectural distortion, or suspicious clusters of microcalcifications. Procedure Note Morro Harrington MD - 02/25/2021 55-year-old female with no current breast symptoms. Comparison made toprevious on 02/22/2020 and as far back as 04/13/2014. Interpretation made inconjunction with computer-aided detection and tomosynthesis. The breasts [...] unspecified documented in this encounter Care Teams Grief Counsellor Relationship Specialty Start Date End Date Kermit Dash DO PCP - General 06/01/17 documented as of this encounter Additional Source Comments The information contained in this document represents components of the legal health record. It is not the complete legal health record.[facility]
[2025-06-12 13:06] LABS: MANUAL DIFF FLAG NO
[2025-06-12 13:10] LABS: Hematocrit 39.1 % (37.0-47.0); Hemoglobin 12.9 g/dl (12.0-16.0); Imm Gran Abs Auto 0.02 X10*3/uL (0.00-0.03); Imm Gran Pct Auto 0.3 % (0.0-0.4); Lymphocytes Absolute Auto 2.0 X10*3/uL (1.2-4.9); Mean Corpuscular HGB Conc 33.0 g/dl (31.0-35.0); Mean Corpuscular Hemoglobin 29.8 pg (27.0-33.0); Mean Corpuscular Volume 90.3 fL (80.0-98.0); NRBC Abs Auto 0.000 X10*3/uL (0.0-0.012); NRBC Pct Auto 0.0 /100WBC (0.0-0.2); Platelet Count 236 X10*3/uL (160-400); Red Blood Count 4.33 X10*6/uL (4.20-5.50); White Blood Count 5.9 X10*3/uL (4.8-10.8)
[2025-06-12 13:33] LABS: Alanine Aminotransferase 24 U/L (0-31); Albumin Level 4.6 g/dL (3.5-5.0); Alkaline Phosphatase 74 U/L (39-117); Anion Gap 13 (12-20); Aspartate Amino Transferase 37 U/L (5-31); Blood Urea Nitrogen 10 mg/dL (9-16); Calcium 9.5 mg/dL (8.4-10.2); Carbon Dioxide 29 mmol/L (22-29); Chloride 105 mmol/L (96-108); Cholesterol 191 mg/dL (<200); Estimated Glomerular Filt Rate > 60; HDL Cholesterol 67 mg/dL (>40); Potassium 4.5 mmol/L (3.3-5.1); Sodium 142 mmol/L (135-145); Total Protein 8.1 g/dL (6.5-8.0); Triglycerides 46 mg/dL (<150)
== END 2025-06-12 10:07 | disposition home or self-care (01) ==
LOC: HO.MANLDS 10:06
PROVIDERS: Visit Provider Internal Medicine
DX: Z00.00 Encounter for general adult medical examination without abnormal findings (principal)
CPT/HCPCS: 36415; 80053; 80061; 82306; 85025